=== PATIENT | male | born 1980 | race African-American/Black ===

== ENCOUNTER 2017-10-23 18:32 | Emergency (ER) | payer BC ==
[2017-10-23 18:48] VITALS: BP 122/69
--- NOTE | 2017-10-23 19:08 | UC ---
Kinza Wyatt Elizabeth, scribed for Kehinde Tate MD on 10/23/17 at 1902 . General HPI - HPI Summary HPI Summary: This patient is a 37 year old M presenting to [facility] with a chief complaint of albuterol inhaler refill since today. The patient has hx of asthma. The patient rates the pain 0/10 in severity. Symptoms aggravated by seasonal changes and weather changes. Symptoms alleviated by albuterol inhaler. Patient reports wheezing this morning but notes that he still had a few puffs left on his inhaler and was able to use that. Patient denies fever, chills, or shortness of breath. - History of Current Complaint Chief Complaint: UCMedRefill Stated Complaint: ASTHMA Time Seen by Provider: 10/23/17 18:51 Hx Obtained From: Patient Onset/Duration: Sudden Onset, Lasting Hours, Still Present Current Severity: None Pain Intensity: 0 Aggravating: seasonal changes, weather changes Alleviating: abuterol inhaler Associated Signs & Symptoms: Positive: Wheezing - now resolved. Negative: Fever , SOB - Allergy/Home Medications Allergies/Adverse Reactions: Allergies Allergy/AdvReac Type Severity Reaction Status Date / Time Penicillins Allergy Hives Verified 10/23/17 18:48 Home Medications: Home Medications Albuterol HFA INHALER* [Ventolin HFA Inhaler*] 2 puff INH Q4HR 10/23/17 [ History Confirmed 10/23/17] Loratadine [Claritin 10 MG CAP] 1 tab PO DAILY 10/23/17 [History Confirmed 10/23] PMH/Surg Hx/FS Hx/Imm Hx Respiratory History: Asthma - Surgical History Surgical History: None - Family History Known Family History: Positive: None - Social History Alcohol Use: Occasionally Substance Use Type: None Smoking Status (MU): Never Smoked Tobacco Review of Systems Constitutional: Negative - negative fever ENT: Negative - negative epstaxis Respiratory: Negative - negative shortness of breath Gastrointestinal: Negative - negative vomiting All Other Systems Reviewed And Are Negative: Yes Physical Exam - Summary Physical Exam Summary: General: well-appearing, no pain distress Skin: warm, color reflects adequate perfusion, dry Head: normal Eyes: EOMI, NISH ENT: normal Neck: supple, nontender Respiratory: CTA, breath sounds present Cardiovascular: RRR Abdomen: soft, nontender Bowel: present Musculoskeletal: normal, strength/ROM intact Neurological: sensory/motor intact, A&O x3 Psychological: affect/mood appropriate Triage Information Reviewed: Yes Vital Signs: Initial Vital Signs Temp 98.5 F 10/23/17 18:45 Pulse 65 10/23/17 18:45 Resp 12 10/23/17 18:45 BP 122/69 10/23/17 18:45 Pulse Ox 100 10/23/17 18:45 Vital Signs Reviewed: Yes Course/Dx - Differential Dx - Multi-Symptom Provider Diagnoses: ASTHMA Discharge - Sign-Out/Discharge Documenting (check all that apply): Discharge/Admit/Transfer - Discharge Plan Condition: Stable Disposition: HOME Discharge Disposition Comment: discharge home Prescriptions: Albuterol HFA INHALER* [Ventolin HFA Inhaler*] 2 puff INH Q4H PRN #1 mdi PRN Reason: Wheezing Patient Education Materials: Asthma (ED) Referrals: [facility] [place] [facility] [Outside] Additional Instructions: FOLLOW UP WITH YOUR DOCTOR. GET RECHECKED FOR ANY WORSENING OF YOUR CONDITION OR QUESTIONS OR CONCERNS. - Billing Disposition and Condition Condition: STABLE Disposition: Home The documentation as recorded by the Kinza morales Elizabeth accurately reflects the service I personally performed and the decisions made by me, Kehinde Tate MD.
== END 2017-10-23 19:02 | disposition home or self-care (01) ==
LOC: UCEAST 18:32
DX: J45.909 Unspecified asthma, uncomplicated (principal); Z76.0 Encounter for issue of repeat prescription; Z88.0 Allergy status to penicillin
CPT/HCPCS: 99202; G0463